=== PATIENT | male | born 1985 | race Caucasian/White ===

== ENCOUNTER 2018-04-01 23:02 | Emergency (ER) ==
[2018-04-01 23:18] VITALS: BP 171/117; TEMP 97.5; BMI 33.8
[2018-04-01] MEDS ORDERED: DECADRON 4 MG/ML SDV IM STA (23:36)
[2018-04-01] MEDS ORDERED: TORADOL IM STA (23:36)
[2018-04-01] MEDS ORDERED: ATARAX PO STA (23:36)
--- NOTE | 2018-04-01 23:41 | ED.PDOC ---
General ED Provider: Dr. FRANCIS PALUMBO Chief Complaint: Rash Stated Complaint: Has poison jessica rash all over the boday, itching burning Time Seen by Physician: 23:37 Mode of Arrival: Walk-In Information Source: Patient Nursing and Triage Documentation Reviewed and Agree: Yes Does patient meet sepsis criteria?: No If yes, has appropriate treatment been initiated?: No System Inflammatory Response Syndrome: Not Applicable Sepsis Protocol: For patient's 13 years and over: Temp is 96.8 and below OR 101 and greater Pulse >90 BPM Resp >20/minute Acutely Altered Mental Status Are patient's symptoms suggestive of a new infection, such as: -Pneumonia -Skin, Soft Tissue -Endocarditis -UTI -Bone, Joint Infection -Implantable Device -Acute Abdominal Infection -Wound Infection -Meningitis -Blood Stream Catheter Infection -Unknown Skin Complaint Exam - Skin Rash/Itching Complaint/Exam Symptoms Are: Still present Initial Severity: Moderate Current Severity: Moderate Potential Exposures: Reports: Plants Aggravating: Reports: None Alleviating: Reports: None Associated Signs and Symptoms: Denies: Difficulty breathing, Fever, Chills Related History: Similar episode Skin Findings: Present: Papules, Pustules, Lesions Differential Diagnoses: Contact Dermatitis, Poison Jessica/Downey Review of Systems - Review Of Systems Constitutional: Reports: No symptoms Eyes: Reports: No symptoms Ears, Nose, Mouth, Throat: Reports: No symptoms Respiratory: Reports: No symptoms Cardiac: Reports: No symptoms GI: Reports: No symptoms : Reports: No symptoms Musculoskeletal: Reports: No symptoms Skin: Reports: Rash Neurological: Reports: No symptoms Endocrine: Reports: No symptoms Hematologic/Lymphatic: Reports: No symptoms All Other Systems: Reviewed and Negative Past Medical History - Past Medical History Previously Healthy: Yes Endocrine: Reports: None Cardiovascular: Reports: None Respiratory: Reports: None Hematological: Reports: None Gastrointestinal: Reports: None Genitourinary: Reports: None Neuro/Psych: Reports: None Musculoskeletal: Reports: None Cancer: Reports: None - Surgical History General Surgical History: Reports: None - Family History Family History: Reports: None - Social History Smoking Status: Current every day smoker, Light tobacco smoker Smoking Cessation Counseling Time: > 3 min - 10 min Hx Substance Use: No Alcohol Screening: None - Immunizations Tetanus Shot up to Date: Yes Physical Exam - Physical Exam Appearance: Well-appearing, No pain distress, Well-nourished Eyes: NORBERTO, EOMI, Conjunctiva clear ENT: Ears normal, Nose normal, Oropharynx normal Respiratory: Airway patent, Breath sounds clear, Breath sounds equal, Respirations nonlabored Cardiovascular: RRR, Pulses normal, No rub, No murmur GI/: Soft, Nontender, No masses, Bowel sounds normal, No Organomegaly Musculoskeletal: Normal strength, ROM intact, No edema, No calf tenderness Skin: Warm, Dry, Normal color Neurological: Sensation intact, Motor intact, Reflexes intact, Cranial nerves intact, Alert, Oriented Psychiatric: Affect appropriate, Mood appropriate Critical Care Note - Critical Care Note Total Time (mins): 30 Course - Course Orders, Labs, Meds: Orders Category Date Time Status Dexamethasone 4 mg/ml Inj [Decadron 4 mg/ml Sdv] MEDS 04/01/18 23:36 Stat 4 mg IM ONCE STA Hydroxyzine HCl [Atarax] MEDS 04/01/18 23:36 Stat 50 mg PO ONCE STA Ketorolac Tromethamine [Toradol] MEDS 04/01/18 23:36 Stat 30 mg IM ONCE STA Vital Signs: Temp Pulse Resp BP Pulse Ox 04/01/18 23:02 97.5 F L 86 18 171/117 H 97 Departure - Departure Time of Disposition: 23:38 Disposition: HOME SELF-CARE Discharge Problem: Poison jessica Instructions: Poison Jessica (ED) Condition: Stable Pt referred to PMD for follow-up: Yes IPMP verified?: No Additional Instructions: Take medication with food Increase Hydration Prescriptions: Diphenhydramine HCl [Benadryl] 25 mg PO Q6H #14 capsule Prednisone 10 mg PO TIDWM #20 tablet Allergies/Adverse Reactions: Allergies No Known Drug Allergies Adverse Reaction (Verified 04/01/18 23:09) Home Medications: Ambulatory Orders Diphenhydramine HCl [Benadryl] 25 mg PO Q6H #14 capsule 04/01/18 Prednisone 10 mg PO TIDWM #20 tablet 04/01/18 Disposition Discussed With: Patient, Family
== END 2018-04-02 00:50 | disposition home or self-care (01) ==
LOC: ED 23:02
DX: R21 Rash and other nonspecific skin eruption (principal); L23.7 Allergic contact dermatitis due to plants, except food; L24.9 Irritant contact dermatitis, unspecified cause
CPT/HCPCS: 96372; 99282

== ENCOUNTER 2018-04-10 20:51 | Emergency (ER) ==
[2018-04-10 20:56] VITALS: BP 161/99; TEMP 98.1; BMI 34.4
[2018-04-10] MEDS ORDERED: TETRACAINE 0.5% OPTH SOL OP STA (21:17)
[2018-04-10] MEDS ORDERED: BLEPHAMIDE EYE OINTMENT OP STA (21:17)
--- NOTE | 2018-04-10 21:21 | ED.PDOC ---
General ED Provider: Dr. ARSENIO GAMEZ-ER Chief Complaint: Eye Problem Stated Complaint: jimmy had something in my eye since this am Time Seen by Physician: 20:55 Mode of Arrival: Walk-In Information Source: Patient, Family Exam Limitations: No limitations Nursing and Triage Documentation Reviewed and Agree: Yes Does patient meet sepsis criteria?: No System Inflammatory Response Syndrome: Not Applicable Sepsis Protocol: For patient's 13 years and over: Temp is 96.8 and below OR 101 and greater Pulse >90 BPM Resp >20/minute Acutely Altered Mental Status Are patient's symptoms suggestive of a new infection, such as: -Pneumonia -Skin, Soft Tissue -Endocarditis -UTI -Bone, Joint Infection -Implantable Device -Acute Abdominal Infection -Wound Infection -Meningitis -Blood Stream Catheter Infection -Unknown EENT Complaint Exam - Eye Complaint/Exam Onset/Duration: this am Symptoms Are: Still present Timing: Constant Initial Severity: Mild Current Severity: Mild Location: Left Character: Reports: Dull, Throbbing, Foreign body sensation Aggravating: Reports: Blinking Alleviating: Reports: None Associated Signs and Symptoms: Reports: Photophobia, Clear drainage Related History: Reports: Foreign body Penetrating Injury Risk Factors: None Globe Rupture Risk Factors: None Optic Artery Occlusion Risk Factors: None Visual Field: Normal Extraocular Movement: Normal Orbit Findings: Normal Globe Findings: Intact Lid Findings: Normal Conjunctival Findings: Red Corneal Findings: Clear Fundi: Normal Differential Diagnoses: Corneal Abrasion, Foreign Body Review of Systems - Review Of Systems Constitutional: Reports: No symptoms Eyes: Reports: Foreign body sensation, Pain Ears, Nose, Mouth, Throat: Reports: No symptoms Respiratory: Reports: No symptoms Cardiac: Reports: No symptoms GI: Reports: No symptoms : Reports: No symptoms Musculoskeletal: Reports: No symptoms Skin: Reports: No symptoms Neurological: Reports: No symptoms Endocrine: Reports: No symptoms Hematologic/Lymphatic: Reports: No symptoms All Other Systems: Reviewed and Negative Past Medical History - Past Medical History Previously Healthy: Yes Endocrine: Reports: None Cardiovascular: Reports: None Respiratory: Reports: None Hematological: Reports: None Gastrointestinal: Reports: None Genitourinary: Reports: None Neuro/Psych: Reports: None Musculoskeletal: Reports: None Cancer: Reports: None - Surgical History General Surgical History: Reports: None - Family History Family History: Reports: None - Social History Smoking Status: Current every day smoker, Light tobacco smoker Hx Substance Use: No Alcohol Screening: None Physical Exam - Physical Exam Appearance: Well-appearing, No pain distress, Well-nourished Pain Distress: Mild Eyes: NORBERTO, EOMI, Conjunctiva inflammed ENT: Ears normal, Nose normal, Oropharynx normal Neck: Supple Respiratory: Airway patent, Breath sounds clear, Breath sounds equal, Respirations nonlabored Cardiovascular: RRR, Pulses normal, No rub, No murmur GI/: Soft, Nontender, No masses, Bowel sounds normal, No Organomegaly Musculoskeletal: Normal strength, ROM intact, No edema, No calf tenderness Skin: Warm, Dry, Normal color Neurological: Sensation intact, Motor intact, Reflexes intact, Cranial nerves intact, Alert, Oriented Psychiatric: Affect appropriate, Mood appropriate Procedures - Eye Procedure Location of Foreign Body: 6 o clock left eye Tetracaine Drops Administered: Yes Eye FB Removal: Removed with cotton swab (partial removal) Depth: Imbedded Foreign Body Completely Removed: No Eye Irrigated: Yes Critical Care Note - Critical Care Note Total Time (mins): 0 Course - Course Orders, Labs, Meds: Orders Category Date Time Status Eye [ED EYE PATCH] .ONCE EMERGENCY 04/10/18 21:18 Active Sulfacetm Na/Prednisol AC [Blephamide Eye Ointment] MEDS 04/10/18 21:17 Stat 1 applic OP ONCE STA Tetracaine HCl [Tetracaine 0.5% Opth Gi] MEDS 04/10/18 21:17 Stat 2 drop OP ONCE STA Medications Generic Name Dose Route Start Last Admin Trade Name Freq PRN Reason Stop Dose Admin Sulfacetamide/Prednisolone Acetate 1 applic 04/10/18 21:17 Blephamide Eye Ointment OP 04/10/18 21:18 ONCE STA Tetracaine HCl 2 drop 04/10/18 21:17 Tetracaine 0.5% Opth Gi OP 04/10/18 21:18 ONCE STA Vital Signs: Temp Pulse Resp BP Pulse Ox 04/10/18 20:51 98.1 F 109 H 18 161/99 H 96 Departure - Departure Time of Disposition: 21:21 Disposition: HOME SELF-CARE Discharge Problem: Foreign body in cornea, left eye, initial encounter Instructions: Eye Foreign Body (ED) Condition: Good Pt referred to PMD for follow-up: No IPMP verified?: No Additional Instructions: keep eye patched--norco 7.5mg q 4hrs prn pain #6---gentamycin ointment apply in am---you must see opthamology tomorrow to have foreign body removed Allergies/Adverse Reactions: Allergies No Known Drug Allergies Adverse Reaction (Verified 04/10/18 20:56) Home Medications: Ambulatory Orders 1 [No Reported Medications] 04/10/18 Disposition Discussed With: Patient, Family
== END 2018-04-10 21:30 | disposition home or self-care (01) ==
LOC: ED 20:51
DX: T15.02XA Foreign body in cornea, left eye, initial encounter (principal); F17.210 Nicotine dependence, cigarettes, uncomplicated
CPT/HCPCS: 99283

== ENCOUNTER 2019-01-09 09:51 | Outpatient (CLI) | END 2019-01-09 10:08 | disposition short-term general hospital (02) | LOC: AMBL 09:51 | PROVIDERS: ATTEND Emergency Medicine | DX: R07.9 Chest pain, unspecified (principal); R20.0 Anesthesia of skin; R55 Syncope and collapse; R53.1 Weakness; S09.93XA Unspecified injury of face, initial encounter; R00.0 Tachycardia, unspecified; W19.XXXA Unspecified fall, initial encounter ==